=== PATIENT | female | born 1970 | race Two or more races ===

== ENCOUNTER 2016-09-17 20:55 | Emergency (ER) | payer OTHER ==
[~2016-09-17] VITALS: Ht 157.5 cm; Wt 90.7 kg
[2016-09-17] MEDS ORDERED: FAMOTIDINE 20 MG/2 ML VIAL IVP ONE (21:30)
[2016-09-17 21:32] LABS: BASO # 0.1 x10^3/uL (0.0-0.2); BASO % 1 % (0-3); EOS # 0.1 x10^3/uL (0.0-0.7); EOS % 1 % (0-3); HEMATOCRIT 35.6 % (36.0-47.0); HEMOGLOBIN 11.3 g/dL (12.0-15.5); LYMPH # 2.2 x10^3/uL (1.0-4.8); LYMPH % 27 % (24-48); MEAN CORPUSCULAR HEMOGLOBIN 24 pg (25-35); MEAN CORPUSCULAR HGB CONC 32 g/dL (31-37); MEAN CORPUSCULAR VOLUME 75 fL (79-100); MONO # 0.7 x10^3/uL (0.0-1.1); MONO % 8 % (0-9); NEUT # 5.2 x10^3uL (1.8-7.7); NEUT % 63 % (31-73); PLATELET COUNT 263 x10^3/uL (140-400); RED BLOOD COUNT 4.74 x10^6/uL (3.50-5.40); RED CELL DISTRIBUTION WIDTH 18.6 % (11.5-14.5); WHITE BLOOD COUNT 8.2 x10^3/uL (4.0-11.0)
[2016-09-17 21:46] LABS: ALBUMIN 3.3 g/dL (3.4-5.0); ALBUMIN/GLOBULIN RATIO 0.8 (1.0-1.7); CALCIUM 8.5 mg/dL (8.5-10.1); POTASSIUM 3.4 mmol/L (3.5-5.1); TOTAL BILIRUBIN 0.2 mg/dL (0.2-1.0); TOTAL PROTEIN 7.7 g/dL (6.4-8.2)
[2016-09-17] MEDS ORDERED: ONDANSETRON PF 4 MG/2 ML VIAL. IV ONE (22:30)
[2016-09-17] MEDS ORDERED: MORPHINE SULFATE 4 MG/ML DISP.SYRIN. IV ONE (22:30)
[2016-09-17] MEDS ORDERED: IOHEXOL 300 MG/ML 75 ML VIAL. IV ONE (23:15)
--- NOTE | 2016-09-17 23:26 | EKG ---
[address] [address] Test Date: 2016-09-17 Test Time: 21:01:50 Pat Name: JOSE JOHNSON Department: Room: Gender: F Director [employer]: : 1970 Requested By: LACY SANTIAGO Order Number: [id number] Reading MD: Michael Baez Measurements Intervals [place] Rate: 79 P: 18 CO: 162 QRS: 0 QRSD: 98 T: -9 QT: 376 QTc: 432 Interpretive Statements SINUS RHYTHM Electronically Signed On 09-18-2016 8:39:48 CDT by Michael Baez
--- NOTE | 2016-09-17 23:53 | RAD ---
EXAM: CT ABDOMEN/PELVIS WITH CONTRAST. HISTORY: Left upper quadrant pain and flank pain. TECHNIQUE: Computed tomography of the abdomen and pelvis was performed after the intravenous administration of 75 mL Omnipaque 300. COMPARISON: None. FINDINGS: Lung windows through the visualized portions of the bases reveal a 1 cm nodule in the left lower lobe containing a focus of calcification. Is most likely a benign calcified granuloma.. Bone windows reveal no suspicious lesions. The liver, gallbladder, pancreas, adrenal glands and spleen are unremarkable. The kidneys are unremarkable without hydronephrosis. There is no nephroureterolithiasis. No inflammatory changes are seen in the left upper quadrant. There are no pathologically enlarged lymph nodes. A dominant left ovarian follicle measures 2.6 cm. The uterus is prominent measuring 12 x 8 x 8 cm. No focal masses or appreciable by CT. There endometrial stripe measures 10 mm, normal in premenopausal patient. There is minimal left diverticulosis. The appendix is not inflamed. There is no obstruction. IMPRESSION: 1. No cause for acute pain is identified. 2. Prominent uterus without focal masses. Sonography could assess for fibroids if there is persistent concern. *One or more of the following individualized dose reduction techniques were utilized for this examination: 1. Automated exposure control. 2. Adjustment of the mA and/or kV according to patient size. 3. Use of iterative reconstruction technique. Electronically signed by: Romario Gomez MD (09/17/2016 11:49 PM) [facility]
[2016-09-18 00:20] VITALS: BP 125/72
--- NOTE | 2016-09-18 06:21 | ED.ADGEN ---
Past History Past Medical History: No Pertinent History Past Surgical History: No Surgical History Alcohol Use: Occasionally Drug Use: None Adult General Chief Complaint Chief Complaint Left upper quadrant pain HPI HPI Patient is a 46-year-old female presents with diffuse left upper quadrant pain after eating a chili dog earlier today. Pain is described as moderate to severe and sharp. It is worse with palpation and deep breathing. Pain radiates to left shoulder. Denies nausea vomiting sweats, fever chills or shortness of breath. No other acute symptoms or complaints. Review of Systems Review of Systems Review of symptoms as per history of present illness. All other review symptoms are negative. Current Medications Current Medications Current Medications Medications (Trade) Dose Ordered Sig/Kevin Start Time Stop Time Status Last Admin Dose Admin Famotidine (Pepcid) 20 mg 1X ONCE 09/17/16 21:30 09/17/16 21:31 DC 09/17/16 21:30 20 MG Iohexol (Omnipaque 300 Mg/ml) 75 ml 1X ONCE 09/17/16 23:15 09/17/16 23:16 DC 09/17/16 23:32 75 ML Morphine Sulfate (Morphine 4mg Syringe) 4 mg 1X ONCE 09/17/16 22:30 09/17/16 22:31 DC 09/17/16 22:30 4 MG Ondansetron HCl (Zofran) 4 mg 1X ONCE 09/17/16 22:30 09/17/16 22:31 DC 09/17/16 22:30 4 MG Allergies Allergies Allergies Coded Allergies Type Severity Reaction Last Updated Verified No Known Drug Allergies 04/15/14 No Physical Exam Physical Exam Constitutional: Well developed, moderate discomfort secondary to pain. HENT: Normocephalic, atraumatic, bilateral external ears normal, oropharynx moist, no oral exudates, nose normal. [] Eyes: PERRLA, EOMI, conjunctiva normal, no discharge. [] Neck: Normal range of motion, no tenderness, supple, no stridor. [] Cardiovascular:Heart rate regular rhythm, no murmur [] Lungs & Thorax: Bilateral breath sounds clear to auscultation [] Abdomen: Bowel sounds normal, upper quadrant pain, all tenderness, no rebound rigidity or guarding. Skin: Warm, dry, no erythema, no rash. [] Back: No tenderness, no CVA tenderness. [] Extremities: No tenderness, no cyanosis, no clubbing, ROM intact, no edema. [] Neurologic: Alert and oriented X 3, normal motor function, normal sensory function, no focal deficits noted. [] Psychologic: Affect normal, judgement normal, mood normal. [] Current Patient Data Vital Signs Vital Signs Date Time Temp Pulse Resp B/P (MAP) Pulse Ox O2 Delivery O2 Flow Rate FiO2 09/18/16 00:20 68 125/72 (89) 98 Room Air 09/17/16 23:00 20 09/17/16 21:00 97.9 Lab Results Laboratory Tests Test 09/17/16 21:10 09/17/16 21:40 White Blood Count 8.2 x10^3/uL (4.0-11.0) Red Blood Count 4.74 x10^6/uL (3.50-5.40) Hemoglobin 11.3 g/dL (12.0-15.5) L Hematocrit 35.6 % (36.0-47.0) L Mean Corpuscular Volume 75 fL (79-100) L Mean Corpuscular Hemoglobin 24 pg (25-35) L Mean Corpuscular Hemoglobin Concent 32 g/dL (31-37) Red Cell Distribution Width 18.6 % (11.5-14.5) H Platelet Count 263 x10^3/uL (140-400) Neutrophils (%) (Auto) 63 % (31-73) Lymphocytes (%) (Auto) 27 % (24-48) Monocytes (%) (Auto) 8 % (0-9) Eosinophils (%) (Auto) 1 % (0-3) Basophils (%) (Auto) 1 % (0-3) Neutrophils # (Auto) 5.2 x10^3uL (1.8-7.7) Lymphocytes # (Auto) 2.2 x10^3/uL (1.0-4.8) Monocytes # (Auto) 0.7 x10^3/uL (0.0-1.1) Eosinophils # (Auto) 0.1 x10^3/uL (0.0-0.7) Basophils # (Auto) 0.1 x10^3/uL (0.0-0.2) D-Dimer (Judy) 0.37 mg/L (0.00-0.50) Sodium Level 141 mmol/L (136-145) Potassium Level 3.4 mmol/L (3.5-5.1) L Chloride Level 105 mmol/L (98-107) Carbon Dioxide Level 30 mmol/L (21-32) Anion Gap 6 (6-14) Blood Urea Nitrogen 18 mg/dL (7-20) Creatinine 1.0 mg/dL (0.6-1.0) Estimated GFR (Cockcroft-Gault) 60.0 BUN/Creatinine Ratio 18 (6-20) Glucose Level 74 mg/dL (70-99) Calcium Level 8.5 mg/dL (8.5-10.1) Total Bilirubin 0.2 mg/dL (0.2-1.0) Aspartate Amino Transferase (AST) 20 U/L (15-37) Alanine Aminotransferase (ALT) 25 U/L (14-59) Alkaline Phosphatase 57 U/L (46-116) Creatine Kinase 152 U/L (26-192) Troponin I Quantitative < 0.017 ng/mL (0-0.055) Total Protein 7.7 g/dL (6.4-8.2) Albumin 3.3 g/dL (3.4-5.0) L Albumin/Globulin Ratio 0.8 (1.0-1.7) L Lipase 228 U/L (73-393) POC Urine HCG, Qualitative hcg negative (Negative) EKG EKG [EKG: Normal sinus rhythm, no acute ST-T wave changes.] Radiology/Procedures Radiology/Procedures [CT abdomen pelvis: No acute intra-abdominal process per radiology report] Course & Med Decision Making Course & Med Decision Making Pertinent Labs and Imaging studies reviewed. (See chart for details) [While in the ED the patient's abdominal pain resolved. Lab work, imaging studies reviewed and are reassuring. Recommend supportive care with watchful waiting and PCP follow-up. Return precautions reviewed. Patient verbalized understanding and agreement discharge instructions prior to departure.] Final Impression Final Impression [1. Abdominal pain Problems: Dragon Disclaimer Dragon Disclaimer This electronic medical record was generated, in whole or in part, using a voice recognition dictation system. LACY SANTIAGO DO Sep 18, 2016 06:21
--- NOTE | 2016-09-18 09:54 | RAD ---
Portable chest, 09/17/2016: History: Left-sided chest pain The heart size and pulmonary vascularity are normal. No pulmonary infiltrates are seen. There is no evidence of pleural fluid. IMPRESSION: No acute cardiopulmonary abnormality is detected.
== END 2016-09-18 00:20 | disposition home or self-care (01) ==
LOC: ER 20:55
DX: R10.12 Left upper quadrant pain (principal)
CPT/HCPCS: 36415; 71010; 74177; 80053; 81025; 82550; 83690; 84484; 85027; 85379; 93005; 96374; 96375; 99285; J2270; J2405; Q9967; S0028